=== PATIENT | female | born 1965 | race Caucasian/White ===

== ENCOUNTER 2018-07-13 05:40 | Day surgery (SDC) | payer OTHER ==
[~2018-07-13] VITALS: Ht 165.1 cm; Wt 56.7 kg
[~2018-07-13 05:40] MED LIST: CITALOPRAM HBR20 MG PO; ESTRADIOL0.5 MG PO; GARLIC1000 MG PO; LEVOTHYROXINE200 MCG PO; NORCO 5-325 TA1 EACH PO; ONE DAILY1 EAC1 PO; VITAMIN B122500 MCG PO; XANAX0.25 MG PO
--- NOTE | 2018-07-13 07:58 | EKG ---
[facility] [address] [facility] [place], [place] [address] Signed Normal sinus rhythm Normal ECG No previous ECGs available Confirmed by ELMIRA DIAMOND MD ([id number]) on 07/13/2018 7:58:29 AM Electronically Signed By: ELMIRA DIAMOND MD 07/13/18 0758 PATIENT NAME: TARA ROMERO Electrocardiogram DATE OF : 67 PHYSICIAN: ELMIRA DIAMOND MD REPORT #: [id number] REPORT IS CONFIDENTIAL AND NOT TO BE RELEASED WITHOUT AUTHORIZATION
--- NOTE | 2018-07-13 08:54 | NUR ---
07/13/18 0854 [place] 0832- PT ARRIVES TO PACU FROM OR ON 10 L VIA MASK WITH ORAL AIRWAY IN PLACE. PT REACTIVE TO VERBAL STIMULUS. PT HAD MAC ANESTHESIA PT OPENS EYES AND MOVES HEAD BUT FALLS BACK ASLEEP QUICKLY. RESP EVEN AND UNLABORED. O2 SATS 100%. NO DRAINAGE FROM COLON. 0836- PT OPENS EYES AND SPITS OUT ORAL AIRWAY. PT TITRATED TO 6 L VIA MASK WITH SATS 100%. RESP EVEN AND UNALBORED. PT MORE AWAKE. 0837- PT COUGHS AND DEEP BREATHES. PT ABLE TO PASS GAS AND ENC PT TO CONT TO DO SO. PT TITRATED TO RA. SATS 100%. 0845- AT PT BEDSIDE. PT SITS UP IN BED AND SIPS WATER. TOLERATES. 0850- RA SATS 100%. VSS. PT CONT TO SIP WATER. RESP EVEN AND UNALBORED. PT DENIES PAIN/NAUSEA.
--- NOTE | 2018-07-15 12:01 | OR ---
[facility] [address] [place], [place] [address] Signed DATE OF OPERATION: 07/13/2018 SURGEON: Tasha Bowen MD PREOPERATIVE DIAGNOSES: 1. Weight loss, diarrhea, ineffective steroid response to presumed colitis. 2. Incomplete colonoscopy March 2018, [facility]. POSTOPERATIVE DIAGNOSES: 1. Mild low-grade colitis throughout colon. 2. Normal ileum. 3. Mucosal nodule at 20 cm (excised). 4. Small polyp of rectum excised. PROCEDURES: 1. Total colonoscopy to cecum with intubation of ileum and multiple biopsies. 2. Snare polypectomy lesion at 20 cm. 3. Cold morcellation polypectomy low rectal polyp. ANESTHESIA: Propofol infusional sedation; Tasha Roberson CRNA. INDICATION: This 53-year-old white woman is from [place], [place] and is a patient of Dr. Daniel Cevallos. She has had progressive weight loss and diarrhea. She does have family history of colitis, not otherwise specified. She underwent colonoscopy in March of [address] Shirley [address] [facility], but it was incomplete due to intolerance of the patient. No doubt due to multiple medications she takes. Incomplete colonoscopy was noted. Empiric treatment with prednisone was not tolerated and budesonide was then given, but with little clinical benefit. She was admitted at this time to undergo colonoscopy to better characterize her problem with more advanced sedation technique of propofol. She understands the risks of bleeding, infection, and perforation and wished to proceed. FINDINGS: The prep was good. Complete colonoscopy was undertaken of the cecum with intubation of the ileum as well. She did require a fair amount of propofol for sedation. She had a diffuse low-grade colitis throughout, not otherwise clear exactly what type. There was a small nodule at 20 cm, which was excised with snare technique and additional cold morcellation technique. A small polyp of the rectum was excised as well. Notably, the Electronically Signed By: TASHA BOWEN MD 07/15/18 1201 PATIENT NAME: TARA ROMERO OPERATIVE REPORT DATE OF : 67 REPORT #: [id number] PHYSICIAN: TASHA BOWEN MD PCP: DANIEL CEVALLOS MD REPORT IS CONFIDENTIAL AND NOT TO BE RELEASED WITHOUT AUTHORIZATION [facility] [address] [place], [place] [address] Signed ileum was normal. Biopsies were taken there as well. DESCRIPTION OF PROCEDURE: The patient was brought to the endoscopy suite and placed in lateral decubitus position given intravenous sedation by the conveyor feeder with propofol infusional technique. She was rather resistant to sedation initially. Digital rectal examination was found to be normal. An Olympus video colonoscope was passed in the rectum and manipulated throughout the colon. She did have redundant colon and with her straining and resisting, made a bit more challenging. Ultimately, the scope was passed to the cecum. The ileocecal valve and appendiceal orifice were identified. The ileocecal valve was intubated without too much problem. Passage into the ileum showed normal mucosa. Biopsies were obtained as were photographed. The scope was withdrawn to the cecum as it appeared to be a low-grade mild colitis. The scope was carefully withdrawn and examination throughout showed similar such mucosal findings. Biopsies were taken throughout. There was a nodule at about 20 cm from the anal verge, which initially appeared as a polyp, but with attempts at complete snare polypectomy, which were incomplete requiring morcellation technique, the nodule was considered unlikely to be an adenomatous polyp. Whether it represents a carcinoid or some other ectopic rest is uncertain. In the lowest portion of the rectum, a small adenomatous polyp was noted. This was excised with cold morcellation technique. Retroflexed view was undertaken showing no other findings of concern. The scope was removed and the patient was taken to recovery in good condition. CONCLUDING DIAGNOSES: 1. Mild low-grade colitis without sign of ileal abnormality. 2. Nodule at 20 cm, completely excised. 3. Low rectal polyp (excised). PLAN: We will empirically treat with Flagyl 250 mg p.o. t.i.d. We will initiate mesalamine 800 mg p.o. t.i.d. We will see her back in 4 to 6 weeks, review her pathology reports and assess her progress. Tasha Bowen MD /ANNAMARIAL /[id number] Electronically Signed By: TASHA BOWEN MD 07/15/18 1201 PATIENT NAME: TARA ROMERO OPERATIVE REPORT DATE OF : 67 REPORT #: [id number] PHYSICIAN: TASHA BOWEN MD PCP: DANIEL CEVALLOS MD REPORT IS CONFIDENTIAL AND NOT TO BE RELEASED WITHOUT AUTHORIZATION [facility] [address] [place] [id number] Signed cc: Daniel Cevallos MD Copies: DANIEL CEVALLOS MD ~ Electronically Signed By: TASHA BOWEN MD 07/15/18 1201 PATIENT NAME: TARA ROMERO OPERATIVE REPORT DATE OF : 67 REPORT #: [id number] PHYSICIAN: TASHA BOWEN MD PCP: DANIEL CEVALLOS MD REPORT IS CONFIDENTIAL AND NOT TO BE RELEASED WITHOUT AUTHORIZATION
== END 2018-07-13 09:10 | disposition home or self-care (01) ==
LOC: OPS 05:40 → DS 05:40 → OPS 06:45
PROVIDERS: Surgery
PROC: 0DBM8ZZ Excision of Descending Colon, Via Natural or Artificial Opening Endoscopic (ICD-10-PCS; 2018-07-13)
PROC: 0DBN8ZZ Excision of Sigmoid Colon, Via Natural or Artificial Opening Endoscopic (ICD-10-PCS; 2018-07-13)
PROC: 0DBL8ZZ Excision of Transverse Colon, Via Natural or Artificial Opening Endoscopic (ICD-10-PCS; 2018-07-13)
PROC: 0DBB8ZZ Excision of Ileum, Via Natural or Artificial Opening Endoscopic (ICD-10-PCS; 2018-07-13)
PROC: 0DBP8ZZ Excision of Rectum, Via Natural or Artificial Opening Endoscopic (ICD-10-PCS; 2018-07-13)
PROC: 0DBH8ZZ Excision of Cecum, Via Natural or Artificial Opening Endoscopic (ICD-10-PCS; principal; 2018-07-13 06:45)
DX: D12.7 Benign neoplasm of rectosigmoid junction (principal); K62.1 Rectal polyp; K52.9 Noninfective gastroenteritis and colitis, unspecified; K63.89 Other specified diseases of intestine; K92.2 Gastrointestinal hemorrhage, unspecified; E03.9 Hypothyroidism, unspecified; F41.1 Generalized anxiety disorder; K21.0 Gastro-esophageal reflux disease with esophagitis; D64.9 Anemia, unspecified; F11.90 Opioid use, unspecified, uncomplicated; F17.210 Nicotine dependence, cigarettes, uncomplicated; M54.2 Cervicalgia; R63.4 Abnormal weight loss; R13.10 Dysphagia, unspecified; N20.0 Calculus of kidney; Z88.5 Allergy status to narcotic agent; Z88.8 Allergy status to other drugs, medicaments and biological substances; Z91.040 Latex allergy status; Z88.6 Allergy status to analgesic agent; Z98.890 Other specified postprocedural states; Z83.79 Family history of other diseases of the digestive system; Z79.899 Other long term (current) drug therapy
CPT/HCPCS: 88305; 93005; 93010; J2704; J7120